=== PATIENT | male | born 1975 | race Hispanic/Latino ===

== ENCOUNTER 2017-01-21 13:05 | Outpatient (CLI) | payer OTHER ==
--- NOTE | 2017-01-21 16:57 | MRI ---
MRI OF THE LEFT SHOULDER 01/21/17 PROVIDED CLINICAL HISTORY: Left shoulder pain. FINDINGS: There is a full thickness, full width retracted tear of the supraspinatus and infraspinatus tendons with retraction to about the level of the acromion. The subscapularis and teres minor tendons appear intact. The long head biceps tendon appears intact and normally located. There is a mild glenohumeral joint effusion. There is somewhat heterogeneous signal alteration prese nt in the region of the superior labrum which could reflect SLAP tear. Glenohumeral articular cartil age and glenoid labrum appear otherwise unremarkable. There is conspicuous subacromial subdeltoid bursal fluid on the bases of the rotator cuff defect. Mi ld acromioclavicular joint osteoarthrosis is demonstrated without significant mass effect upon the s ubjacent supraspinatus. There is supraspinatus and to a lesser extent infraspinatus muscular volume loss without evidence for fatty infiltrate. No focal concerning regional marrow or muscular signal abnormality is apparent. IMPRESSION: 1. Full thickness, full width retracted tears of the supraspinatus and infraspinatus tendons wi th associated muscular volume loss without fatty infiltration. 2. Possible SLAP tear. POS: OFF
== END 2017-01-21 13:06 | disposition home or self-care (01) ==
LOC: MRI 13:05
PROVIDERS: ATTEND Family Medicine
DX: M24.812 Other specific joint derangements of left shoulder, not elsewhere classified (principal); M75.102 Unspecified rotator cuff tear or rupture of left shoulder, not specified as traumatic

== ENCOUNTER 2017-02-08 12:18 | Outpatient (CLI) | payer OTHER ==
[2017-02-08 13:03] LABS: Hematocrit 43.7 % (42.0-52.0); Mean Platelet Volume 8.4 fL (7.4-10.4); Red Blood Cell (RBC) Count 5.14 mill/uL (4.70-6.10); White Blood Cell (WBC) Count 9.1 thou/uL (4.8-10.8)
[2017-02-08 13:30] LABS: Anion Gap 12 mmol/L (10-20); BUN (Urea Nitrogen) 15 mg/dL (8.9-20.6); Calc. Creatinine Clearance 0 mL/min (70-130); Calcium 9.6 mg/dL (7.8-10.44); Carbon Dioxide 28 mmol/L (22-29); Chloride 101 mmol/L (98-107); Estimated GFR-MDRD 70
--- NOTE | 2017-02-08 16:53 | EKG ---
Test Reason : Blood Pressure : / mmHG Vent. Rate : 080 BPM Atrial Rate : 080 BPM P-R Int : 148 ms QRS Dur : 096 ms QT Int : 372 ms P-R-T Axes : 042 095 036 degrees QTc Int : 429 ms Normal sinus rhythm Rightward axis Possible Inferior infarct , age undetermined Abnormal ECG Confirmed by DR. Maggi LEDEZMA ([id number]) on 02/08/2017 4:53:35 PM Referred By: ANTHONY Confirmed By:DR. Maggi LEDEZMA
== END 2017-02-08 12:19 | disposition home or self-care (01) ==
LOC: LABBT 12:18
PROVIDERS: ATTEND Orthopaedic Surgery
DX: Z01.818 Encounter for other preprocedural examination (principal); M75.122 Complete rotator cuff tear or rupture of left shoulder, not specified as traumatic
CPT/HCPCS: 80048; 85027; 93005; 93010

== ENCOUNTER 2017-02-10 06:23 | Day surgery (SDC) | payer OTHER ==
[2017-02-08 12:54] VITALS: BMI 36.4
--- NOTE | 2017-02-09 09:26 | HP ---
DATE OF ADMISSION: 02/10/2017 HISTORY OF PRESENT ILLNESS: The patient is a 41-year-old male, who injured his nondominant left shoulder when he slipped in a ditch at work on 12/30/2016. He has had persistent pain, loss o f motion, and weakness. Denies any previous shoulder problems. PAST MEDICAL HISTORY: The patient has a history of hypertension and diabetes. CURRENT MEDICATIONS: Lisinopril, glipizide, and metformin. He has also taken Naprosyn and Lodine f or his current complaints. ALLERGIES: He is allergic to PENICILLIN. FAMILY HISTORY/SOCIAL HISTORY, REVIEW OF SYSTEMS: Otherwise, unremarkable. 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 PHYSICAL EXAMINATION: GENERAL: Reveals a healthy male. HEENT: Unremarkable. NECK: Supple. CHEST: Clear. HEART: Regular rate and rhythm. ABDOMEN: Soft, nontender. RECTAL/GENITAL EXAM: Deferred. EXTREMITIES: Pertinent findings related to the left shoulder. There is no swelling. There is slig ht atrophy. Passive flexion is 160 degrees and active flexion is less than 90 degrees. Active abdu ction is less than 90 degrees. There is weakness with abduction and external rotation. Positive dr op arm test. Neurovascular exam is, otherwise, intact and normal sensation. Pulses are 2+. There is no instability. LABORATORY AND X-RAY FINDINGS: X-rays of the left shoulder are negative except for DJD of the AC godfrey int. MRI scan of the left shoulder reveals a full thickness retracted tears of the supraspinatus an d infraspinatus tendons. IMPRESSION: Complete rotator cuff tear, left shoulder. PLAN: Open acromioplasty and rotator cuff repair, left shoulder. The nature of the surgery, length of recovery, and potential complications such as infection, loss of motion, persistent weakness, ne urovascular injury, rupture of the repair, and need for additional treatment or repeat surgery have been discussed in detail.
[2017-02-10] MEDS ORDERED: Clindamycin/D5W 900 mg/50 ml Premix Bag ONE (07:31)
[2017-02-10] MEDS ORDERED: Ropivacaine 0.2% HCl/PF 20 ML ONE (07:59)
[2017-02-10] MEDS ORDERED: Midazolam HCl 2 mg/2 ml Vial ONE (07:59)
[2017-02-10] MEDS ORDERED: Fentanyl 100 MCG/2 ML VIAL ONE ×2 (07:59→08:51)
[2017-02-10] MEDS ORDERED: PHENYLEPHRINE-NS 100 MCG/ML 10 ML SYRINGE ONE (09:10)
[2017-02-10] MEDS ORDERED: Ondansetron HCl/PF 4 MG/2 ML Vial ONE (09:10)
[2017-02-10] MEDS ORDERED: Lidocaine 1% PF 5 ML VIAL ONE (09:10)
[2017-02-10] MEDS ORDERED: diphenhydrAMINE 50 MG/ML VIAL ONE (09:10)
[2017-02-10] MEDS ORDERED: Ketorolac Tromethamine 30 MG/ML VIAL ONE (09:10)
[2017-02-10] MEDS ORDERED: Dexamethasone 20 MG/5 ML VIAL ONE (09:10)
[2017-02-10] MEDS ORDERED: Glycopyrrolate 0.2 MG/ML 5 ML SYRINGE ONE ×2 (09:10)
[2017-02-10] MEDS ORDERED: Metoclopramide HCl 10 MG/2 ML VIAL ONE (09:10)
[2017-02-10] MEDS ORDERED: Propofol 200 MG/20 ML VIAL ONE ×2 (09:10)
--- NOTE | 2017-02-10 11:47 | OP ---
DATE OF PROCEDURE: 02/10/2017 SURGEON: Chandler Arora M.D. WOODENWARE ASSEMBLER: MIKA Cross. ANESTHESIA: General plus single-shot interscalene block. PREOPERATIVE DIAGNOSIS: Rotator cuff tear, left shoulder. POSTOPERATIVE DIAGNOSIS: Rotator cuff tear, left shoulder. PROCEDURE: Open acromioplasty and repair of massive rotator cuff tear, left shoulder. OPERATIVE FINDINGS: Examination under anesthesia revealed the shoulder to be stable. At exploratio n, there was a moderate subacromial prominence and subacromial bursitis. There was a large totally retracted tear of the supraspinatus and infraspinatus, but satisfactory repair was accomplished. NARRATIVE REPORT: After satisfactory anesthesia was induced in the semi lu chair position, the patient was prepped and draped in the routine manner. Shoulder was approached through an anterolate ral incision, centered off the anterolateral edge of the acromion process and carried down to subcut aneous tissues. Bleeding points controlled with Bovie cautery. Deltoid raphae was split and the de ltotrapezial fascia was split on the dorsal aspect of the acromion and clavicle, and the deltoid ref lected medially and distally. Coracoacromial ligament was resected. The anterior edge of the acrom ion was excised with an osteotome, flush with the distal clavicle and the undersurface beveled with a curved osteotome and smoothed with rongeurs and rasp. Partial subacromial bursectomy was performe d. Using sharp and blunt dissection, the above findings were noted. The rotator cuff tear was mobi lized. One heavy FiberWire suture was placed in the anterior edge of supraspinatus and this was sut ured to the superior edge of the subscapularis. The remaining portion of the tear was repaired with 2 double loaded anchors with heavy FiberWire suture after first freshening the edges of the tear an d also removing a portion of the greater tuberosity down to a bleeding bed. All the sutures were tie d in sequence and then reinforced with a double row technique using 2 SwiveLock sutures in the later al aspect of the proximal humeral shaft. This appeared to give good stable repair. There was good range of motion. The wound was thoroughly irrigated. The deltoid was repaired back to bone with in terrupted #1 Ethibond. The deltoid raphae was closed with heavy Vicryl sutures, subcutaneous tissue was closed with interrupted 2-0 Vicryl, and skin closed with staple gun. Sterile bulky compressive dressing was applied and the patient immobilized in an arm sling. He was awakened and taken to rec overy room in stable condition. There were no apparent intraoperative complications. The estimated blood loss was less than 100 mL The patient will be discharged home in satisfactory condition. He was instructed in ice, elevation, and given written wound care instructions. He was instructed home program of isometrics of his bic eps and triceps and gentle pendulum exercises, but no active range of motion. He was given written wound care instructions and a prescription for [place] 10 for pain, 100 tablets. He will be rechecked in my office in approximately 10-14 days or sooner if there are any problems prior to that time.
[2017-02-10] MEDS ORDERED: Bupivacaine HCl 0.5%/Epinephrine 1:200,000/PF 30 ml Vial ONE (13:25)
== END 2017-02-10 14:48 | disposition home or self-care (01) ==
LOC: SDC 06:23
PROVIDERS: ATTEND Orthopaedic Surgery
PROC: 0LQ20ZZ Repair Left Shoulder Tendon, Open Approach (ICD-10-PCS; principal; 2017-02-10)
DX: M75.122 Complete rotator cuff tear or rupture of left shoulder, not specified as traumatic (principal); M71.9 Bursopathy, unspecified; I10 Essential (primary) hypertension; E11.9 Type 2 diabetes mellitus without complications; Z79.84 Long term (current) use of oral hypoglycemic drugs; Z79.899 Other long term (current) drug therapy; Z88.0 Allergy status to penicillin
CPT/HCPCS: 36416; C1713; G8984-GP-CK; G8985-GP-CK; G8986-GP-CK; J0131; J0670; J1100; J1200; J1885; J2001; J2250; J2405; J2704; J2765; J2795; J3010; J3490

== ENCOUNTER 2018-06-01 13:37 | Emergency (ER) | payer OTHER ==
[2018-06-01] MEDS ORDERED: Acetaminophen 325 MG TAB ONE (14:42)
[2018-06-01] MEDS ORDERED: Ibuprofen 200 MG TAB ONE ×2 (14:42→14:48)
--- NOTE | 2018-06-01 15:10 | CT ---
CT THORACIC SPINE: DATE: 06/01/2018. PROVIDED CLINICAL HISTORY: Back pain status post injury. FINDINGS: There is prominent right convexity scoliosis of the thoracic spine centered about T6-7. Sagittal tho racic alignment appears normal. There are coronally oriented fractures through the T9 pedicles bilaterally. The right clavicular fra cture at T9 demonstrates irregular, sclerotic margins and demonstrates gas within the fracture plane, suggesting this may reflect a more remote, ununited fracture. The fracture through the left pedicle does not demonstrate CT features typical for a remote fracture. No additional fracture is identified. Vertebral body heights appear preserved. No osseous spinal ca nal narrowing is apparent. The visualized lung parenchyma appears normal. Advanced multilevel midth oracic degenerative disk changes are seen. IMPRESSION: Bilateral T9 pedicle fractures, potentially chronic on the right, but appearing acute on the left. S urgical consultation is recommended. Findings and recommendations discussed with Dr. Davenport via telep lona 2:44 p.m. 06/01/2018. CODE ELLA POS: MARCO
[2018-06-01] MEDS ORDERED: Lorazepam 2 MG/ML VIAL ONE (15:13)
[2018-06-01] MEDS ORDERED: Morphine 4 MG/ML VIAL ONE (15:14)
[2018-06-01 16:38] LABS: #Basophils 0.1 thou/uL (0.0-0.2); #Eosinphils 0.7 thou/uL (0.0-0.7); #Lymphocytes 2.9 thou/uL (1.20-3.40); #Monocytes 0.8 thou/uL (0.11-0.59); %Basophils 0.5 % (0.0-1.0); %Eosinophils 6.8 % (0.0-10.0); %Lymphocytes 27.8 % (21.0-51.0); %Monocytes 7.2 % (0.0-10.0); %Neutrophils 57.7 % (42.0-75.0); Hemoglobin 13.9 g/dL (14.0-18.0); Mean Corpuscular HGB CONC 32.9 g/dL (32.0-36.0); Mean Corpuscular Hemoglobin 27.4 pg (27.0-31.0); Mean Corpuscular Volume 83.2 fL (78.0-98.0); Mean Platelet Volume 8.1 fL (7.4-10.4); Platelet Count 225 thou/uL (130-400); RBC Distribution Width 11.9 % (11.5-14.5); Red Blood Cell (RBC) Count 5.09 mill/uL (4.70-6.10); White Blood Cell (WBC) Count 10.4 thou/uL (4.8-10.8)
--- NOTE | 2018-06-01 16:45 | MRI ---
THORACIC SPINE MRI WITHOUT CONTRAST: 06/01/18 HISTORY: Indeterminate fractures involving the left and right pedicle at T9, noted on recent CT. COMPARISON: None. CORRELATION: Thoracic spine CT 06/01/18. TECHNIQUE: MRI of the thoracic spine is performed without intravenous gadolinium administration. Multisequential , multiplanar imaging performed. FINDINGS: There is redemonstration of a rightward curvature of the thoracic spine. There are intrinsic T1 and T 2 hyperintense lesions at T9, T10, T11, and T12 compatible with osseous hemangiomas. With regards to the posterior elements at T9, obvious STIR hyperintensity to suggest an acute fracture is not appreci ated. On the sagittal STIR sequence, there is a linear hyperintense signal at the level of the fractu re which may represent fluid in a pseudoarticulation from a nonhealed right pedicle fracture. Correla tion made with CT does suggest a chronic process given sclerotic margins. Acute thoracic spine verteb ral body fracture is not appreciated. There is multilevel degenerative change with loss of disc space height and osteophyte formation. Throughout the thoracic spine, there is no evidence of high grade central canal stenosis. The thoraci c cord does demonstrate a central T2 hyperintensity that is atypical in appearance for a syringohydro myelia. Postcontrast imaging of the thoracic spine as well as pre and postcontrast imaging of the cer vical spine is recommended given the abnormal signal intensities noted in the lower cervical spine on the sagittal T2 and STIR images. The visualized lung parenchyma, mediastinum and solid organs are unremarkable. Probable cyst in the l eft renal pelvis. IMPRESSION: 1. Rightward scoliosis of the thoracic spine. 2. No definite acute fracture with regards to the posterior elements at T9. 3. Abnormal T2 hyperintensity involving the thoracic cord, not typical for a syringohydromyelia. Postcontrast imaging of the thoracic spine as well as pre and postcontrast imaging of the cervical s pine is recommended on a nonemergent basis for further evaluation. Results of the study discussed with Dr. Davenport, 06/01/18 at 4:28 p.m. Flower JARAMILLO POS: SHARA
[2018-06-01 16:53] LABS: INR-International Normal Ratio 0.9; PTT 27.4 SEC (22.9-36.1); Prothrombin Time 12.7 SEC (12.0-14.7)
[2018-06-01 16:58] LABS: ALT (SGPT) 22 U/L (8-55); AST (SGOT) 15 U/L (5-34); Albumin 4.3 g/dL (3.5-5.0); Alkaline Phosphatase 110 U/L (40-150); Anion Gap 10 mmol/L (10-20); BUN (Urea Nitrogen) 16 mg/dL (8.9-20.6); Bilirubin, Total 0.3 mg/dL (0.2-1.2); Calc. Creatinine Clearance 0 mL/min (70-130); Calcium 9.5 mg/dL (7.8-10.44); Carbon Dioxide 29 mmol/L (22-29); Chloride 100 mmol/L (98-107); Estimated GFR-MDRD Greater than 90; Globulin 2.8 g/dL (2.4-3.5); Glucose 119 mg/dL (70-105); Protein, Total 7.1 g/dL (6.0-8.3); Sodium 135 mmol/L (136-145)
== END 2018-06-01 16:53 | disposition home or self-care (01) ==
LOC: ERS 13:37
DX: S22.079A Unspecified fracture of T9-T10 vertebra, initial encounter for closed fracture (principal); E11.9 Type 2 diabetes mellitus without complications; I10 Essential (primary) hypertension; Z79.899 Other long term (current) drug therapy; Z79.84 Long term (current) use of oral hypoglycemic drugs; V89.2XXA Person injured in unspecified motor-vehicle accident, traffic, initial encounter
CPT/HCPCS: 36415; 72128; 72146; 80053; 85025; 85610; 85730; 96374; 96375; J2060; J2270

== ENCOUNTER 2023-06-30 09:59 | Emergency (ER) | payer OTHER, SELFPAY ==
[2023-06-30] MEDS ORDERED: Ketorolac Tromethamine 30 MG (1 mL) VIAL ONE (10:41)
[2023-06-30] MEDS ORDERED: Bupivacaine PF 0.5% 30 ML VIAL ONE (12:30)
== END 2023-06-30 13:10 | disposition home or self-care (01) ==
LOC: ERS 09:59
DX: N49.2 Inflammatory disorders of scrotum (principal); I10 Essential (primary) hypertension; E11.9 Type 2 diabetes mellitus without complications; Z79.84 Long term (current) use of oral hypoglycemic drugs; Z79.899 Other long term (current) drug therapy
CPT/HCPCS: 54700; 76870; 93976; 96372; J0665; J1885